=== PATIENT | male | born 1930 | race Caucasian/White ===

== ENCOUNTER 2019-05-06 07:42 | Day surgery (SDC) | payer MEDICARE, OTHER ==
[~2019-05-06 07:42] MED LIST: Lactated Ringers 1,000 ML IV SCH; Sodium Chloride 0.9% 10 ML SDV IV PRN; Sodium Chloride 0.9% 10 ML Syringe FLUSH PRN; Sodium Chloride 0.9% 2.5 ML Syringe FLUSH PRN
[2019-05-06] MEDS ORDERED: Propofol 200 MG/20 ML SDV ONE (08:48)
[2019-05-06] MEDS ORDERED: Lidocaine 1% 0 ML ONE (08:49)
[2019-05-06] MEDS ORDERED: fentaNYL 250 MCG/5 ML SDV ONE (08:49)
[2019-05-06] MEDS ORDERED: Ondansetron 4 MG/2 ML SDV ONE (08:49)
--- NOTE | 2019-05-06 09:01 | PCM.PREANE ---
Preanesthetic Assessment - Anesthesia/Transfusion/Family Hx Anesthesia History: Prior Anesthesia Without Reaction Family History of Anesthesia Reaction: No Transfusion History: No Prior Transfusion(s) - Review of Systems General: Weakness Pulmonary: Shortness of Breath Neurological: Syncope - Physical Assessment NPO Status Date: 05/06/19 NPO Status Time: 06:00 O2 Sat by Pulse Oximetry: 92 Respiratory Rate: 16 Vital Signs: Last Vital Signs Temp 97.3 F 05/06/19 08:00 Pulse 59 L 05/06/19 08:00 Resp 16 05/06/19 08:00 BP 156/76 H 05/06/19 08:00 Pulse Ox 92 L 05/06/19 08:00 Height: 6 ft 2 in Weight: 90.718 kg ASA Class: 3 Mental Status: Alert & Oriented x3 Dentition: Reports: Edentulous ROM/Head Extension: Full Lungs: Clear to Auscultation, Normal Respiratory Effort Cardiovascular: Regular Rate, Regular Rhythm - Allergies Allergies/Adverse Reactions: Allergies Allergy/AdvReac Type Severity Reaction Status Date / Time Penicillins Allergy Itching Verified 05/02/19 10:37 Sulfa (Sulfonamide Allergy Itching Verified 05/02/19 10:37 Antibiotics) - Blood Blood Available: No - Anesthesia Plan Pre-Op Medication Ordered: None - Acknowledgements Anesthesia Type Planned: Spinal Pt an Appropriate Candidate for the Planned Anesthesia: Yes Alternatives and Risks of Anesthesia Discussed w Pt/Guardian: Yes Pt/Guardian Understands and Agrees with Anesthesia Plan: Yes Additional Comments: ANES PROB LIST: spinal stenosis- details unknown, prob lumbar, no neurologic claudication, was receiving epid steroids, told he might need transabdominal decompression, ? COPD- no formal dx of copd, quit smoking in 1959, we do not have an explanation for his resting room air hypoxemia 89-92, PAD- s/p fem pop, CAD- s/ p CABG in 2004, aortic stenosis- s/p LIANET 9 years ago- bioprosthetic, GERD, IBS , glaucoma, orthostatic hypotension - chronic- on midodrine, osteoarthritis, s/ p knee and hip replacements, ANNY- severe, non compliant with CPAP because of nosebleeds, PLAN: high risk patient for low risk surgery, spinal (saddle block), with no fentanyl or versed. low dose propofol only for sedation. limit fluids but watch for hptn since he has chronic autonomic insuficiency, observe for obstructive sx while sedated. potential overnight admission if saturations <91% after surgery PreAnesthesia Questionnaire HEENT History: Reports: Cataract, Glaucoma, Macular Degeneration, Other (See Below) Other HEENT History: wears glasses, has upper denture, has bilateral hearing aides Cardiovascular History: Reports: CAD, High Cholesterol Respiratory History: Reports: Sleep Apnea Other Respiratory History: unable to tolerate CPAP Gastrointestinal History: Reports: GERD, Irritable Bowel Syndrome Genitourinary History: Reports: Prostate Disorder Musculoskeletal History: Reports: Arthritis, Neck Pain, Chronic Other Musculoskeletal History: hx of fx right leg Neurological History: Reports: Headaches, Chronic Psychiatric History: Reports: Depression Oncologic (Cancer) History: Reports: Prostate, Other (See Below) Other Oncologic History: some "skin" cancers removed from face and arms (one excised, others "frozen) - Past Surgical History Head Surgeries/Procedures: Reports: None HEENT Surgical History: Reports: Cataract Surgery Cardiovascular Surgical History: Reports: Coronary Artery Bypass, Valve Replacement, Vascular Surgery Other Cardiovascular Surgeries/Procedures: CABG in 2004, 3 vessels ; bilateral fem-pop bypass grafts, aortic valve replacement GI Surgical History: Reports: Cholecystectomy Male Surgical History: Reports: Prostatectomy, Vasectomy Neurological Surgical History: Reports: C-Spine, Laminectomy, Lumbar Spine, Spinal Fusion Other Neurological Surgeries/Procedures: cervical spinal fusion, lumbar laminectomy( 5 surgeries) Musculoskeletal Surgical History: Reports: Hip Replacement, Knee Replacement, ORIF Other Musculoskeletal Surgeries/Procedures:: right AVEL, bilateral TKA (one revision), ORIF right leg - SUBSTANCE USE Smoking Status *Q: Former Smoker Recreational Drug Use History: No - HOME MEDS Home Medications: Home Meds Aspirin [Adult Low Dose Aspirin EC] 81 mg PO DAILY 05/02/19 [History] Carboxymethylcellulose Sodium [Refresh Tears] 1 drop EYEBOTH ASDIRECTED PRN [History] Citalopram Hydrobromide [Celexa] 20 mg PO DAILY 05/02/19 [History] Gluc 2KCl/Chondr/Sadi Hy/Hy Ac [Glucosamine & Chondroitin Cap] 1 cap PO DAILY [History] Midodrine 5 mg PO TID 05/02/19 [History] Omeprazole 40 mg PO QAM 05/02/19 [History] Psyllium Husk/Aspartame [Metamucil Fiber Singles Packet] 1 dose PO DAILY [History] Simvastatin [Zocor] 40 mg PO DAILY 05/02/19 [History] Timolol Maleate [Timoptic 0.5% Ophth Soln] 1 drop EYEBOTH QAM 05/02/19 [History] - CURRENT (IN HOUSE) MEDS Current Meds: Current Medications Lactated Ringer's (Ringers, Lactated) 1,000 mls @ 100 mls/hr IV ASDIRECTED ALVIN Last Admin: 05/06/19 08:25 Dose: 100 mls/hr Sodium Chloride (Saline Flush) 10 ml FLUSH ASDIRECTED PRN PRN Reason: Keep Vein Open Sodium Chloride (Saline Flush) 2.5 ml FLUSH ASDIRECTED PRN PRN Reason: Keep Vein Open Sodium Chloride (Normal Saline) 10 ml IV ASDIRECTED PRN PRN Reason: IV Use Discontinued Medications Fentanyl (Sublimaze) Confirm Administered Dose 250 mcg .ROUTE .STK-MED ONE Stop: 05/06/19 08:50 Lidocaine HCl (Xylocaine-Mpf 1%) Confirm Administered Dose 5 mls @ as directed .ROUTE .STK-MED ONE Stop: 05/06/19 08:50 Ondansetron HCl (Zofran) Confirm Administered Dose 4 mg .ROUTE .STK-MED ONE Stop: 05/06/19 08:50 Propofol (Diprivan 20 Ml) Confirm Administered Dose 200 mg .ROUTE .STK-MED ONE Stop: 05/06/19 08:49
[2019-05-06] MEDS ORDERED: Bupivacaine 0.25% 10 ML SDV ONE (10:03)
[2019-05-06] MEDS ORDERED: Ciprofloxacin in D5W 400 MG in Premix Bag 1 BAG IV ONE ×4 (10:45→11:12)
[2019-05-06] MEDS ORDERED: Non-Formulary Medication 1 Each (Carboxymethylcellulose Sodium 1 DROP) EYEBOTH PRN (11:11)
--- NOTE | 2019-05-06 11:37 | PCM.POSTAN ---
POST ANESTHESIA ASSESSMENT - MENTAL STATUS Mental Status: Alert, Oriented - RESPIRATORY Respiratory Status: Respiratory Rate WNL, Airway Patent, O2 Saturation Stable - CARDIOVASCULAR CV Status: Pulse Rate WNL, Blood Pressure Stable - GASTROINTESTINAL GI Status: No Symptoms - POST OP HYDRATION Hydration Status: Adequate & Stable
--- NOTE | 2019-05-06 11:43 | OR ---
SURGEON: Carmel Springer M.D. DATE OF PROCEDURE: 05/06/2019 PREOPERATIVE DIAGNOSIS: Adenocarcinoma of the prostate. POSTOPERATIVE DIAGNOSIS: Adenocarcinoma of the prostate. OPERATION: Bilateral simple orchiectomy. DESCRIPTION OF PROCEDURE: The patient was given a saddle block, placed in the supine position. External genital area was prepped and draped in sterile drapes. A transverse incision was made in left scrotal sac. The testicle was delivered to the outside. The cord structures were cut. The proximal ends were suture ligated with 0 chromic in 2 bites behind 2 clamps. Clamps were released. The wound was closed using interrupted 3-0 chromic sutures. The exact same thing was done on the other side. The patient tolerated the procedure well. Estimated blood loss was minimal under 5 mL. The patient was moved to recovery room in good condition. ROSY / AARON /[id number]
[2019-05-06] MEDS ORDERED: Midodrine 5 MG Tab PO SCH (14:00)
--- NOTE | 2019-05-06 14:57 | PCM48HPAN ---
Post Anesthesia Note - EVALUATION WITHIN 48HRS OF ANESTHETIC Vital Signs in Normal Range: Yes Patient Participated in Evaluation: Yes Respiratory Function Stable: Yes Airway Patent: Yes Cardiovascular Function Stable: Yes Hydration Status Stable: Yes Pain Control Satisfactory: Yes Nausea and Vomiting Control Satisfactory: Yes Mental Status Recovered: Yes Resp Rate: 16 - COMMENTS/OBSERVATIONS Free Text/Narrative:: sats 92-98 in phase 2 no apnic episodes, no desats,
[2019-05-07] MEDS ORDERED: PSYLLIUM HUSK PO SCH (09:00)
[2019-05-07] MEDS ORDERED: ASPARTAME PO SCH (09:00)
[2019-05-07] MEDS ORDERED: Non-Formulary Medication 1 Each (Gluc 2kcl/Chondr/Coll Hy/Hy Ac [Glucosamine & Chondroitin PO SCH (09:00)
[2019-05-07] MEDS ORDERED: Non-Formulary Medication 1 Each (Timolol Maleate 1 DROP) EYEBOTH SCH (09:00)
[2019-05-07] MEDS ORDERED: Non-Formulary Medication 1 Each (Citalopram Hydrobromide [Celexa] 20 MG) PO SCH (09:00)
[2019-05-07] MEDS ORDERED: Simvastatin 40 MG Tab PO SCH (09:00)
[2019-05-07] MEDS ORDERED: Non-Formulary Medication 1 Each (Omeprazole [Omeprazole] 40 MG) PO SCH (09:00)
[2019-05-07] MEDS ORDERED: Aspirin 81 MG Tab.EC PO SCH (09:00)
== END 2019-05-06 15:00 | disposition home or self-care (01) ==
LOC: MW.SDS 07:42
PROVIDERS: ATTEND Urology
DX: C61 Malignant neoplasm of prostate (principal); M19.90 Unspecified osteoarthritis, unspecified site; E78.5 Hyperlipidemia, unspecified; K21.9 Gastro-esophageal reflux disease without esophagitis; I25.10 Atherosclerotic heart disease of native coronary artery without angina pectoris; M51.16 Intervertebral disc disorders with radiculopathy, lumbar region; E78.00 Pure hypercholesterolemia, unspecified; F32.9 Major depressive disorder, single episode, unspecified; H40.9 Unspecified glaucoma; Z79.82 Long term (current) use of aspirin; Z88.0 Allergy status to penicillin; Z88.2 Allergy status to sulfonamides; Z87.891 Personal history of nicotine dependence
CPT/HCPCS: 00920; 88302; J2001; J2405; J2704; J3010; J3490; J7120